=== PATIENT | female | born 1980 | race Caucasian/White ===

== ENCOUNTER 2016-12-15 20:32 | Emergency (ER) | payer BC ==
[2016-12-15] MEDS ORDERED: Ibuprofen 800 MG TAB ONE (21:24)
--- NOTE | 2016-12-16 05:53 | RAD ---
RIGHT MIDDLE FINGER O1 A subtle fracture is present at the base of the middle phalanx, volar aspect of the PIP joint. Ther e is no displacement. The remainder of the finger appears intact. IMPRESSION: Middle phalanx fracture. POS: HOME
== END 2016-12-15 21:27 | disposition home or self-care (01) ==
LOC: BURERS 20:32
DX: S60.031A Contusion of right middle finger without damage to nail, initial encounter (principal); F32.9 Major depressive disorder, single episode, unspecified; F41.9 Anxiety disorder, unspecified; F17.210 Nicotine dependence, cigarettes, uncomplicated; W31.89XA Contact with other specified machinery, initial encounter

== ENCOUNTER 2018-04-22 02:37 | Emergency (ER) | payer BC, OTHER, SELFPAY ==
[2018-04-22] MEDS ORDERED: Ketorolac Tromethamine 30 MG/ML VIAL ONE (03:14)
[2018-04-22 03:20] LABS: #Basophils 0.2 thou/uL (0.0-0.2); #Eosinphils 0.2 thou/uL (0.0-0.7); #Lymphocytes 4.5 thou/uL (1.20-3.40); #Monocytes 1.2 thou/uL (0.11-0.59); #Neutrophils 7.1 thou/uL (1.40-6.50); %Basophils 1.4 % (0.0-1.0); %Eosinophils 1.8 % (0.0-10.0); %Neutrophils 53.8 % (42.0-75.0); Hemoglobin 14.3 g/dL (12.0-16.0); Mean Corpuscular HGB CONC 32.5 g/dL (32.0-36.0); Mean Corpuscular Hemoglobin 28.2 pg (27.0-31.0); Mean Corpuscular Volume 86.6 fL (78.0-98.0); Mean Platelet Volume 11.9 fL (7.4-10.4); Platelet Count 237 thou/uL (130-400); Red Blood Cell (RBC) Count 5.07 mill/uL (4.20-5.40); White Blood Cell (WBC) Count 13.2 thou/uL (4.8-10.8)
[2018-04-22 03:21] LABS: Pregnancy Test - Urine (BHCG) Negative (Negative); Pregu Control Background? CLEAR/WHITE (CLR/WHITE); Pregu Control Bar Appear? YES (CONTROL BAR); Specific Gravity 1.017 (1.002-1.036)
[2018-04-22 03:22] LABS: Bilirubin Negative (Negative); Blood, Urine Negative (Negative); Clarity Turbid (Clear); Glucose, Urine (Dipstick) Negative (Negative); Leukocyte Small (Negative); Nitrite Negative (Negative); Protein, Urine (Dipstick) 30 mg/dL (Neg-Trace); Specific Gravity, Urine 1.015 (1.005-1.030); Urobilinogen 0.2 mg/dL (0.2-1.0); pH, Urine 8.5 (5.0-9.0)
[2018-04-22 03:29] LABS: Bacteria/HPF Rare-Few HPF (None Seen); Crystals/HPF 1+ AMORPH PHOS HPF (Negative); RBC/HPF 0-3 HPF (0-3); Squamous Epithelial 0-3 HPF (0-3); Transitional Epithelial 0-3 HPF (0-3)
[2018-04-22 03:30] LABS: Anion Gap 14 mmol/L (10-20); BUN (Urea Nitrogen) 16 mg/dL (7.0-18.7); Calc. Creatinine Clearance 0 mL/min (70-130); Calcium 9.2 mg/dL (7.8-10.44); Chloride 105 mmol/L (98-107); Estimated GFR-MDRD 86; Glucose 112 mg/dL (70-105); Potassium 3.4 mmol/L (3.5-5.1); Sodium 138 mmol/L (136-145)
[2018-04-22 03:33] LABS: Carbon Dioxide 22 mmol/L (22-29)
--- NOTE | 2018-04-22 10:59 | CT ---
PRELIMINARY REPORT/[facility]/EMERGENCY AFTER HOURS PROCEDURE: EXAM: CT Abdomen and Pelvis Without Intravenous Contrast EXAM DATE/TIME: 04/22/2018 3:23 AM CLINICAL HISTORY: 37 years old, female; Pain; Other: Right flank pain; Patient HX: HX cholecystectomy, appendectomy TECHNIQUE: Axial computed tomography images of the abdomen and pelvis without intravenous contrast. All CT scans at this facility use at least one of these dose optimization techniques: automated expos ure control; mA and/or kV adjustment per patient size (includes targeted exams where dose is matched to clinical indication); or iterative reconstruction. COMPARISON: No relevant prior studies available. FINDINGS: Lower thorax: The visualized portions of the lung bases are normal. ABDOMEN: Liver: The liver is within normal limits for this noncontrast study. Gallbladder and bile ducts: There has been a cholecystectomy. Pancreas: Normal. No ductal dilation. Spleen: The spleen is normal. Adrenals: The adrenal glands are normal. Kidneys and ureters: Normal. No hydronephrosis. Stomach and bowel: The stomach is normal. The duodenum is unremarkable. Appendix: Probably surgically absent. PELVIS: Bladder: The bladder is normal. Reproductive: The uterus is normal. There is large cystic lesion in the pelvis possibly extending from the LEFT ovary measuring approximately 6.8 x 3.0 x cm. ABDOMEN and PELVIS: Intraperitoneal space: Normal. No free air. No significant fluid collection. Bones/joints: No acute fracture. No dislocation. Soft tissues: Unremarkable. Vasculature: Normal. No abdominal aortic aneurysm. Lymph nodes: Normal. No enlarged lymph nodes. IMPRESSION: LEFT pelvic cystic lesion. Pelvic ultrasound may provide better characterization. Otherwise unremarka ble exam. Thank you for allowing us to participate in the care of your patient. Dictated and Authenticated by: Chandan Somers MD 04/22/2018 4:13 AM Central Time ([place] & [place]) FINAL REPORT CT ABDOMEN AND PELVIS WITHOUT CONTRAST: Date: 04/22/[address] was done for evaluation of right flank pain and vomiting. Axial slices were acquired, then coronal reconstructions were done. FINDINGS: The lung bases are clear. The liver, spleen, pancreas, kidneys, adrenal glands, and abdominal aorta appear unremarkable, within the limitations of a noncontrast study. No renal stones seen. No hydronephrosis. Prior cholecystecto my noted. The bowel is nondistended. No inflammatory changes around bowel, free air, or free fluid in the upper abdomen. CT of the pelvis was remarkable for a cystic area in the left adnexa. I cannot tell if this is an obl jane cyst or a loculated fluid collection of some type. It measures about 6.6 x 3.3 cm. Pelvic ultraso und is recommended to evaluate it further. The right flank was unremarkable. IMPRESSION: Large cystic area in the left adnexa of uncertain etiology. Pelvic ultrasound recommended for further evaluation. Report in agreement with preliminary reading by [facility]. POS: HOME
== END 2018-04-22 04:50 | disposition home or self-care (01) ==
LOC: BURERS 02:37
DX: R10.9 Unspecified abdominal pain (principal); H61.22 Impacted cerumen, left ear; F41.9 Anxiety disorder, unspecified; F32.9 Major depressive disorder, single episode, unspecified; F17.210 Nicotine dependence, cigarettes, uncomplicated
CPT/HCPCS: 69210; 74176; 80048; 81003; 81015; 81025; 85025; 96361; 96374; J1885

== ENCOUNTER 2020-11-14 16:06 | Emergency (ER) | payer BC, OTHER | END 2020-11-14 17:05 | disposition home or self-care (01) | LOC: BURERS 16:06 | DX: S63.601A Unspecified sprain of right thumb, initial encounter (principal); Z87.891 Personal history of nicotine dependence; W19.XXXA Unspecified fall, initial encounter ==

== ENCOUNTER 2023-09-19 17:48 | Emergency (ER) | payer BC | END 2023-09-19 19:08 | disposition home or self-care (01) | LOC: BURERS 17:48 | DX: S90.31XA Contusion of right foot, initial encounter (principal); E07.9 Disorder of thyroid, unspecified; Z87.891 Personal history of nicotine dependence; Z79.899 Other long term (current) drug therapy; W20.8XXA Other cause of strike by thrown, projected or falling object, initial encounter ==